=== PATIENT | male | born 2005 | race Hispanic/Latino ===

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

== ENCOUNTER 2025-02-07 13:44 | Emergency (ER) | payer SELFPAY ==
[2025-02-07] VITALS (26 sets, daily range): BP systolic 67–137; BP diastolic 50–111
[~2025-02-07] VITALS: Ht 172.7 cm; Wt 97.0 kg
[~2025-02-07 13:44] MED LIST changes: +IBUPROFEN600 MG PO; +LIDOCAINE HCL 2% 2ML SDV IV ONE; +PROPOFOL 200 MG/20 ML VIAL IV ONE
[2025-02-07] MEDS ORDERED: MORPHINE SULFATE 4 MG/ML VIAL IV ONE (14:35)
[2025-02-07] MEDS ORDERED: ONDANSETRON HCl 4 MG/2 ML SDV IV ONE (14:35)
[2025-02-07] MEDS ORDERED: SODIUM CHLORIDE 0.9% 1,000 ML IV ONE (15:55)
== END 2025-02-07 18:56 | disposition home or self-care (01) | DRG 563 ==
LOC: ED 13:44
PROC: 0RSKXZZ Reposition Left Shoulder Joint, External Approach (ICD-10-PCS; principal; 2025-02-07)
DX: S43.005A Unspecified dislocation of left shoulder joint, initial encounter (principal); X50.0XXA Overexertion from strenuous movement or load, initial encounter
CPT/HCPCS: J2405